=== PATIENT | male | born 1935 | race African-American/Black ===

== ENCOUNTER 2017-06-06 11:13 | Inpatient (IN) ==
[2017-06-06] MEDS ORDERED: ONDANSETRON 4 MG/2 ML VIAL IV STA (11:39)
[2017-06-06] MEDS ORDERED: ONDANSETRON 4 MG/2 ML VIAL ONE (12:04)
--- NOTE | 2017-06-06 12:11 | CT Report ---
CT abdomen pelvis Indication: Abdominal pain Comparison: None available Technique: Axial CT imaging of the abdomen and pelvis is performed without contrast. Findings: Cardiac and lung bases are within normal limits CT abdomen: The liver spleen pancreas and adrenal glands are normal in size and density. No evidence of focal lesion is demonstrated in these solid organs. Gallbladder has been removed. Kidneys are normal in size with multiple cystic appearing area is poorly defined without contrast.. No evidence of hydronephrosis or nephrolithiasis is seen. Enlarged hilar lymph nodes are present around the aorta, poorly defined without contrast. Multiple sclerotic lesions are present in the lumbar spine. The bowel caliber is normal and no wall thickening or adjacent inflammatory change is seen. No evidence of free fluid or free air is present. CT pelvis: Multiple enlarged lymph nodes are present in the iliac chains. Multiple sclerotic lesions are present in the sacrum and pelvic bones. 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 The bowel and bladder appear within normal limits. The pelvic organs show no evidence of abnormality Impression: Multiple enlarged lymph nodes in the aorta and iliac chains, poorly defined without contrast. Multiple osseous sclerotic metastatic lesions. This CT exam was performed using one or more the following dose reduction techniques: Automated exposure control, adjustment of the MA and/or KV according to patient size, or use of iterative reconstruction technique. PROCEDURE INTERPRETED AT [facility] DEPARTMENT OF RADIOLOGY Final Report Signed by: Dr. Phong Dickson
[2017-06-06 12:20] LABS: Basophils # 0.1 10*3/uL (0.0-0.2); Basophils % 1.8 % (0.0-0.8); Eosinophils # 0.1 10*3/uL (0.0-0.87); Hematocrit 35.1 VOL% (42.0-52.0); Hemoglobin 11.1 GM/DL (14.0-18.0); Immature Granulocytes % 0.3 %; Immature Granulocytes Absolute 0.01 #; Lymphocytes % 25.4 % (21.2-54.2); Mean Corpuscular HGB Conc 31.6 GM/DL (32-36); Mean Corpuscular Hemoglobin 26 PG (27-34); Mean Corpuscular Volume 82.4 FL (87-102); Mean Platelet Volume 8.8 FL (9.6-12.0); Monocytes # 0.3 10*3/uL (0.11-0.8); Monocytes % 7.8 % (1.7-12.7); Neutrophils # 2.5 10*3/uL (1.4-7.4); Neutrophils % 62.7 % (38.7-73.9); Platelet Count 356 T/CUMM (130-400); Red Blood Count 4.26 MC/CUMM (3.8-5.5); Red Cell Distribution Width 15.2 % (9.3-17.3)
[2017-06-06 12:49] LABS: Alanine Aminotransferase 11 U/L (16-61); Albumin 3.1 G/DL (3.4-5.0); Alkaline Phosphatase 396 U/L (45-117); Aspartate Amino Transferase 28 U/L (0-37); Bilirubin,Total < 0.39 MG/DL (0.2-1.0); Blood Urea Nitrogen 14 MG/DL (7-18); Calcium 9.8 MG/DL (8.5-10.1); Glucose 117 MG/DL (74-106); Potassium 3.7 MMOL/L (3.5-5.1); Sodium 143 MMOL/L (136-145); Total Protein 7.4 G/DL (6.4-8.3)
--- NOTE | 2017-06-06 12:52 | XRay Report ---
XR chest 1V portable Indication: Abdominal pain Comparison: 22 September 2016 Findings: The heart and mediastinum are normal in size and configuration. The pulmonary vascularity is normal in caliber. No lung infiltrates, effusions, pneumothorax or other abnormality is demonstrated. Impression: Normal chest x-ray PROCEDURE INTERPRETED AT [facility] DEPARTMENT OF RADIOLOGY Final Report Signed by: Dr. Phong Dickson
[2017-06-06 13:33] LABS: Apearance,Urine CLOUDY (Clear); Bacteria,Urine Few /HPF (Few); Bilirubin,Urine Negative (Negative); Blood, Urine Small mg/dL (Negative); Glucose,Urine (UA) Negative (Negative); Ketones,Urine Negative (Negative); Mucus,Urine Few /LPF (Occasional); Nitrite,Urine Negative (Negative); Protein,Urine 30 MG/DL; RBC,Urine 15 /HPF (0-4); Squamous Epithelial Cell,Urine Occasional /HPF (0-10); Urine Color Yellow (Yellow); Urine Specific Gravity 1.014 (1.001-1.035); Urine Urobilinogen < 2.0 EU/DL (0.2-1.0); WBC,Urine 509 /HPF (0-6)
--- NOTE | 2017-06-06 13:52 | Emergency Department Note ---
Mark Leung Manpreet, am scribing for, and in the presence of, Robbie Taylor MD 11:47. Claudia Leung Phillip K, MD, personally performed the services described in this documentation, ascribed by Caden Flores in my presence, and it is both accurate and complete [id number] . Arrival - Arrival Chief Complaint: Abdominal / Flank Pain Stated Complaint: right side pain ED Nursing Triage Note: Pt c/o right sided abd/flank pain x 3 days. denies N/V /D Mode of Arrival: Ambulatory Limitations: No Limitations Source: Patient Time Seen by Provider: 06/06/17 11:37 - History of Present Illness HPI Narrative: Pt is a 81 y/o male, with PMHx of HTN, CVA, seizures, NIDDM, HLD, and GERD, who presents to the ED with CC of right-sided Abd pain that began 3 days ago. Pt denies any N/V, fever, or chills, but c/o decreased appetite. Pt is unable to communicate effectively due to 2 previous CVA's. No other pains/complaints reported to ED. Onset (ago): day(s) (2 days3) Consistency: constant Severity: moderate Severity scale (1-10): 3 Quality: cramping Allergies/Adverse Reactions: Allergies Allergy/AdvReac Type Severity Reaction Status Date / Time No Known Allergies Allergy Verified 05/30/17 16:43 Home Medications: Home Medications Medication Instructions Recorded Confirmed Type Lacosamide [Vimpat] 100 mg PO BID 02/06/16 05/30/17 History Levothyroxine Tab [Synthroid Tab] 125 mcg PO DAILY@0700 02/06/16 05/30/17 History Rivaroxaban [Xarelto] 10 mg PO QAM 02/06/16 05/30/17 History traZODone [Desyrel] 50 mg PO BEDTIME 02/06/16 05/30/17 History Phenytoin Sodium Extended 200 mg PO BID 09/22/16 05/30/17 History [Dilantin] dilTIAZem HCl [Cartia XT] 120 mg PO QAM 09/22/16 05/30/17 History Ibuprofen [Ibuprofen] 800 mg PO TID 05/30/17 05/30/17 History Pravastatin Sodium 10 mg PO QAM 05/30/17 05/30/17 History Review of System - Review of System 12 point system: reviewed and no additional remarkable complaints except as stated - Review of System Constitutional: Present: other (Decreased appetite). Absent: chills, diaphoresis, fever, weakness Respiratory: Absent: cough, respiratory distress Cardiovascular: Absent: chest pain, dyspnea on exertion Gastrointestinal: Present: abdominal pain. Absent: nausea, vomiting Musculoskeletal: Absent: arm pain, back pain, leg pain, neck pain Neurological: Absent: headache, weakness Medical,Surgical,& Family Hx - Medical History Cardio: History of: Hypertension Neurology: History of: Cerebrovascular Accident (x2), Seizures Endocrine: History of: Diabetes Mellitus (NIDDM) (diet controlled), Dyslipidemia , Thyroid Disorder Gastrointestinal: History of: GERD Comment Only: GI Problems (constipation) Musculoskeletal: History of: Musculoskeletal Problems (limited ROM from strokes) Other: History of: Cancer (breast cancer) - Surgical History Thoracic Surgeries: Patient denies;: Organ Transplant Neurologic Surgeries: Patient denies: Neurologic Surgery HEENT Surgeries: Surgical HX of: Thyroid Surgery (goiter removed) Abdominal Surgeries: Patient denies: Abdominal Surgery Reproductive Surgeries: Surgical HX of;: Breast Surgery (angela mastectomy) - Family History Family History: Reports;: Family Hypertension - Social History Smoking Status: Never smoker Exam Vital Signs: Vital Signs Temperature 97.3 F L 06/06/17 11:32 Pulse Rate 89 06/06/17 11:32 Respiratory Rate 16 06/06/17 11:32 Blood Pressure 116/66 06/06/17 11:32 O2 Sat by Pulse Oximetry 98 06/06/17 11:19 - General General appearance: alert, in no apparent distress - Head Head exam: Present: atraumatic, normocephalic, normal inspection - Eye Eye exam: Present: normal appearance, PERRL, EOMI - ENT ENT exam: Present: normal exam, normal oropharynx, mucous membranes moist, TM's normal bilaterally - Neck Neck exam: Present: normal inspection, full ROM, trachea midline. Absent: tenderness, thyromegaly - Chest Chest inspection: Absent: normal inspection (Bilat masenectomy), tenderness - Respiratory Respiratory exam: Present: normal lung sounds bilaterally. Absent: accessory muscle use, respiratory distress - Cardiovascular Cardiovascular exam: Present: regular rate, normal rhythm, normal heart sounds. Absent: murmur, rubs, gallop - Abdominal Exam Abdominal exam: Present: tenderness (RUQ tenderness to direct palpation), normal bowel sounds. Absent: distention - Extremities Exam Extremities exam: Present: normal inspection, full ROM. Absent: tenderness, pedal edema - Back Exam Back exam: Present: normal inspection, full ROM. Absent: tenderness - Neurological Exam Neurological exam: Present: alert, oriented X3, CN II-XII intact, reflexes normal - Psychiatric Psychiatric exam: Present: normal affect, normal mood - Skin Skin exam: Present: warm, dry, intact, normal color. Absent: pallor Course Course Narrative: Patient denies any previous history of cancer. Results - Labs CBC & BMP: 06/06/17 12:13 06/06/17 12:13 Lab Results: I have reviewed the patients labs Labs: Laboratory Tests 06/06/17 06/06/17 12:13 12:13 WBC 4.0 RBC 4.26 Hgb 11.1 L Hct 35.1 L MCV 82.4 L MCH 26 L MCHC 31.6 L Plt Count 356 MPV 8.8 L Baso % (Auto) 1.8 H Lymph # (Auto) 1.0 L Sodium 143 Potassium 3.7 Chloride 107 Carbon Dioxide 29 Anion Gap 10.7 BUN 14 Creatinine 0.90 Glucose 117 H ALT 11 L Alkaline Phosphatase 396 H Albumin 3.1 L Globulin 4.3 H Albumin/Globulin Ratio 0.7 L Laboratory Tests 06/06/17 13:20 Urine pH 6.0 Ur Specific [place] 1.014 Urine Protein 30 Urine Urobilinogen < 2.0 H Urine Leukocytes Large H Urine RBC 15 Urine WBC 509 - Diagnostic Findings Procedure: Chest x-ray: report reviewed by me (Normal chest x-ray.), CT Abdomen and Pelvis: report reviewed by me (Multiple enlarged lymph nodes are present in the iliac chains. Multiple sclerotic lesions are present in the aorta and iliac chains, porly defined without contrast. Multiple osseous sclerotic metastatic lesions.) Disposition Clinical Impression: Metastatic bone cancer, Abdominal lymphadenopathy, Abdominal pain, Nausea and vomiting Case discussed with: patient Disposition: Still a Patient Condition: Guarded Additional Instructions: Admit to the hospitalist.
--- NOTE | 2017-06-06 14:30 | Hospitalist History & Physical ---
Assessment and Plan - Time spent with patient Time spent with patient: Greater than 30 minutes (1) Abdominal pain Status: Acute Assessment and plan: CT abd/pelvis: impression: Multiple enlarged lymph nodes in the aorta and iliac chains, poorly defined without contrast. Multiple osseous sclerotic metastatic lesions. Will admit to floor. Will give fluids. Will start antibiotics for UTI. Will culture urine. Will discuss with Dr Ann for further recommendations. Current Visit: Yes History of Present Illness Chief complaint: abdominal pain/flank pain x3 days History of present illness: Mr. Carranza is a 81 year old black male with PMHx of HTN, Seizures, CVA, GERD, Diabetes(diet controlled) presented to [facility] ED for further evaluation of abdominal pain (right sided, upper tenderness) and flank pain x 3 days. Denies nausea, vomiting, diarrhea, fever, chills or cough. Reports decrease in appetite. Patient has difficulty with communicating verbally related to previous CVAs x2. A daughter came into the room and verbalized that the patient recently seen Dr Segal and was given a laxative for constipation, the patient verbalized that he did not have any or very little success from the laxative. Surgical history: bilateral mastectomy (breast cancer?), thyroid ( goiter) removed. He has a scar to his abdomen/umbilicus but patient does not remember surgical reason. Primary care physician: Dr Segal. After discussing with Dr Taylor ED physician and Dr Ann with Hospitalist Services, it was agreed to admit patient for further evaluation. Will review home medications and reconciliation to follow. Home Medications Medication Instructions Recorded Confirmed Type Lacosamide [Vimpat] 100 mg PO BID 02/06/16 05/30/17 History Levothyroxine Tab [Synthroid Tab] 125 mcg PO DAILY@0700 02/06/16 05/30/17 History Rivaroxaban [Xarelto] 10 mg PO QAM 02/06/16 05/30/17 History traZODone [Desyrel] 50 mg PO BEDTIME 02/06/16 05/30/17 History Phenytoin Sodium Extended 200 mg PO BID 09/22/16 05/30/17 History [Dilantin] dilTIAZem HCl [Cartia XT] 120 mg PO QAM 09/22/16 05/30/17 History Ibuprofen [Ibuprofen] 800 mg PO TID 05/30/17 05/30/17 History Pravastatin Sodium 10 mg PO QAM 05/30/17 05/30/17 History Allergies Allergy/AdvReac Type Severity Reaction Status Date / Time No Known Allergies Allergy Verified 05/30/17 16:43 Medical,Surgical,& Family Hx - Medical History Cardio: History of: Hypertension Neurology: History of: Cerebrovascular Accident (x2), Seizures Endocrine: History of: Diabetes Mellitus (NIDDM) (diet controlled), Dyslipidemia , Thyroid Disorder (goiter removed) Gastrointestinal: History of: GERD Comment Only: GI Problems (constipation) Musculoskeletal: History of: Musculoskeletal Problems (limited ROM from strokes) Other: History of: Cancer (breast cancer) - Surgical History Thoracic Surgeries: Patient denies;: Organ Transplant Neurologic Surgeries: Patient denies: Neurologic Surgery HEENT Surgeries: Surgical HX of: Thyroid Surgery (goiter removed) Abdominal Surgeries: Patient denies: Abdominal Surgery Reproductive Surgeries: Surgical HX of;: Breast Surgery (angela mastectomy) - Family History Family History: Reports;: Family Hypertension - Social History Smoking Status: Never smoker Frequency of Alcohol Use: None Type of Drug Use: None Lives With:: Alone Functional capacity: uses cane/walker (uses a cane) Review of systems: ROS completed and pertinent positives and negatives in HPI. Exam - Constitutional Vitals: Period Temp Pulse Resp BP Sys/Aguirre Pulse Ox Last 24 Hr 97.3 F-97.3 F 89-89 16-16 116-116/66-66 98 General appearance: normal weight, no acute distress - Head Head exam: Present: normal inspection - Eye Eye exam: Present: EOMI Pupils: Present: ALAINA - Neck Neck exam: Present: normal inspection - Respiratory Respiratory exam: Present: clear to auscultation bilaterally - Cardiovascular Cardiovascular exam: Present: regular rate and rhythm - GI/Abdominal GI/Abdominal exam: Present: normal bowel sounds, tenderness (right upper tenderness), soft. Absent: guarding, rebound - Extremities Exam Extremities exam: Present: normal inspection, full ROM. Absent: edema - Neurological Exam Neurological exam: Present: alert, oriented X3, CN II-XII intact - Psychiatric Psychiatric exam: Present: normal affect, normal mood - Skin Skin exam: Present: normal color, warm, dry Results - Labs CBC & BMP: 06/06/17 12:13 06/06/17 12:13 Lab Results: I have reviewed the past 24 hour labs Labs: Alkaline Phosphatase 396 AST 28 ALT 11 Lipase 148.0 Urine results: leukocytes: large WBC 509 bacteria few - Diagnostic Findings Procedure: Chest x-ray: report reviewed by me (normal chest xray), CT Abdomen and Pelvis: report reviewed by me (Multiple enlarged lymph nodes in the aorta and iliac chains, poorly defined without contrast, multiple osseous sclerotic metastatic lesions)
[2017-06-06] MEDS ORDERED: ONDANSETRON 4 MG/2 ML VIAL IV PRN (14:50)
[2017-06-06] MEDS ORDERED: DOCUSATE SODIUM 100 MG CAPSULE PO PRN (14:50)
[2017-06-06] MEDS ORDERED: ACETAMINOPHEN 325 MG TABLET PO PRN (14:50)
[2017-06-06] MEDS: SODIUM CHLORIDE 0.9% 1,000 ML IV SCH (16:00)
[2017-06-06] MEDS: cefTRIAXone 1,000 MG in SODIUM CHLORIDE 0.9% 100 ML IV SCH (16:40)
[2017-06-06] MEDS: LEVOFLOXACIN INJ 750 MG in PREMIX 1 EACH IV SCH (18:10)
[2017-06-06] MEDS: traZODone 50 MG TABLET PO SCH (21:19)
[2017-06-06] MEDS: PHENYTOIN ER 100 MG CAPSULE PO SCH (21:19)
[2017-06-06] MEDS: LACOSAMIDE 50 MG TABLET PO SCH (21:19)
[2017-06-06] MEDS: IBUPROFEN 800 MG TABLET PO SCH (21:20)
[2017-06-07 05:21] LABS: Basophils # 0.1 10*3/uL (0.0-0.2); Basophils % 1.9 % (0.0-0.8); Eosinophils # 0.2 10*3/uL (0.0-0.87); Eosinophils % 4.6 % (0.00-10.9); Hematocrit 31.1 VOL% (42.0-52.0); Hemoglobin 9.8 GM/DL (14.0-18.0); Immature Granulocytes % 0.5 %; Immature Granulocytes Absolute 0.02 #; Lymphocytes # 1.1 10*3/uL (1.4-4.0); Lymphocytes % 30.5 % (21.2-54.2); Mean Corpuscular HGB Conc 31.5 GM/DL (32-36); Mean Corpuscular Hemoglobin 26 PG (27-34); Mean Corpuscular Volume 83.6 FL (87-102); Monocytes # 0.4 10*3/uL (0.11-0.8); Monocytes % 11.4 % (1.7-12.7); Neutrophils # 1.9 10*3/uL (1.4-7.4); Neutrophils % 51.1 % (38.7-73.9); Platelet Count 298 T/CUMM (130-400); Red Blood Count 3.72 MC/CUMM (3.8-5.5); White Blood Count 3.7 T/CUMM (4-12)
[2017-06-07 05:44] LABS: Calcium 9.1 MG/DL (8.5-10.1); Magnesium 2.2 MG/DL (1.8-2.4); Potassium 4.2 MMOL/L (3.5-5.1)
[2017-06-07] MEDS: LEVOTHYROXINE 125 MCG TABLET PO SCH (06:14)
[2017-06-07 07:45] LABS: Albumin (SPE) 3.9 G/DL (3.2-5.3); Albumin (SPE) Rel % 55.2 %; Alpha 1 (SPE) 0.3 G/DL (0.1-0.4); Alpha 2 (SPE) Rel % 15.4 %; Beta (SPE) 0.8 G/DL (0.5-1.1); Beta (SPE) Rel % 11.7 %
[2017-06-07 07:46] LABS: Gamma (SPE) Rel % 13.7 %
[2017-06-07] MEDS ORDERED: RIVAROXABAN 10 MG TABLET PO SCH (09:00)
[2017-06-07] MEDS: PHENYTOIN ER 100 MG CAPSULE PO SCH ×2 (09:49→20:38)
[2017-06-07] MEDS: PRAVASTATIN 20 MG TABLET PO SCH (09:50)
[2017-06-07] MEDS: LACOSAMIDE 50 MG TABLET PO SCH ×2 (09:51→20:39)
[2017-06-07] MEDS: POLYETHYLENE GLYCOL POWDER 17 GM PACK PO SCH (09:51)
[2017-06-07] MEDS: IBUPROFEN 800 MG TABLET PO SCH ×3 (09:51→20:37)
[2017-06-07] MEDS: PANTOPRAZOLE 40 MG TABLET PO SCH (09:51)
[2017-06-07] MEDS: DILTIAZEM CD 120 MG CAPSULE PO SCH (09:52)
[2017-06-07 09:55] LABS: Prostate Specific Antigen Diag 538.6 NG/ML (0-4)
[2017-06-07] MEDS: SODIUM CHLORIDE 0.9% 1,000 ML IV SCH (09:58)
--- NOTE | 2017-06-07 10:17 | Urology Consultation ---
Assessment and Plan - Time spent with patient Time spent with patient: Greater than 30 minutes (1) Prostate cancer metastatic to bone Status: Acute Assessment and plan: We will evaluate this but this is looking like prostate cancer. We will hold the Xarelto in preparation for a transrectal ultrasound and biopsy probably on 06/13/17. We will check a bladder scan and we will check a bone scan. Current Visit: Yes History of Present Illness - Data of Consult Patient: new to practice Consult date: 06/07/17 Requesting Physician: Anoop Ann - Consult Narrative Reason for consult: Voiding dysfunction, elevated PSA, abnormal imaging History of present illness: Mr. Carranza is a 81 year old male who I have seen in the past. Last saw him in 2010. He had a TUR by laser. At that time his PSA was 5. He never return to the office. He had 3 appointments that he no showed. We made every effort to get him back but it would not return. He is now admitted the hospital with findings that are consistent with probable metastatic prostate cancer. He is having incontinence, elevated PSA, abnormal imaging and abnormal blood work. I am going to order a bladder scan, bone scan and perform a transrectal ultrasound on Tuesday. He is on Xarelto so we will have to hold that for 3 days and unfortunately the first day we can do this will be next Tuesday. In the meantime we will work this up. His PSA is 538. CC: Anoop Ann MD - Home Medications and Allergies Home Medications: Home Medications Medication Instructions Recorded Confirmed Type Lacosamide [Vimpat] 100 mg PO BID 02/06/16 06/06/17 History Levothyroxine Tab [Synthroid Tab] 125 mcg PO DAILY@0700 02/06/16 06/06/17 History Rivaroxaban [Xarelto] 10 mg PO QAM 02/06/16 06/06/17 History traZODone [Desyrel] 50 mg PO BEDTIME 02/06/16 06/06/17 History Phenytoin Sodium Extended 200 mg PO BID 09/22/16 06/06/17 History [Dilantin] dilTIAZem HCl [Cartia XT] 120 mg PO QAM 09/22/16 06/06/17 History Ibuprofen [Ibuprofen] 800 mg PO TID 05/30/17 06/06/17 History Pravastatin Sodium 10 mg PO QAM 05/30/17 06/06/17 History Ciprofloxacin Tab [Cipro Tab] 500 mg PO BID 06/06/17 06/06/17 History Polyethylene Glycol Powder 1 packet PO DAILY 06/06/17 06/06/17 History [Miralax] Allergies/Adverse Reactions: Allergies Allergy/AdvReac Type Severity Reaction Status Date / Time No Known Allergies Allergy Verified 05/30/17 16:43 12 point system: reviewed and no additional remarkable complaints except as stated - Genitourinary Genitourinary: Present: urinary incontinence - Musculoskeletal Musculoskeletal: Present: arthralgias, back pain Exam - Constitutional Vitals: Period Temp Pulse Resp BP Sys/Aguirre Pulse Ox Last 24 Hr 96.8 F-98 F 62-89 16-20 110-145/63-78 94-99 - GI/Abdominal GI/Abdominal exam: Present: normal bowel sounds. Absent: ascites, distended, firm, guarding, hernia, mass - Genitourinary Genitourinary: scrotum without lesions, cysts, edema or rash, penis with no lesions or discharge, diffusely enlarged prostate without tenderness (Prostate has multiple nodules.) Results - Labs CBC & BMP: 06/07/17 04:39 06/07/17 04:39 Lab Results: I have reviewed the past 24 hour labs (PSAs 538, alkaline phosphatase is abnormal)
--- NOTE | 2017-06-07 12:16 | Hospitalist Progress Note ---
Assessment and Plan (1) Prostate cancer metastatic to bone Status: Acute Assessment and plan: The patient has evidence of prostate cancer on account of the PSA of 538. Dr. Maldonado recommends biopsy to confirm the diagnosis. The patient's pain is improving. I am going to discontinue anticoagulation today. 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 The patient does not complain of pelvic discomfort today. The patient was seen by Dr. Maldonado this morning and I coordinated care with him. He has known the patient previously with PSA of 5 but the patient did not return for further follow-up. Dr. Maldonado anticipates prostate biopsy after anticoagulation has been discontinued. Exam - Constitutional Vitals: Period Temp Pulse Resp BP Sys/Aguirre Pulse Ox Last 24 Hr 96.8 F-98 F 62-75 16-20 110-145/63-78 94-99 Exam: Constitutional System: Minimal distress. No tremulousness. Head: Normocephalic, atraumatic. Ears, Nose and Throat System: No evidence of Otitis or Mastoiditis. No epistaxis or discharge Eyes System: Pupils equal, round, and reactive. Extraocular muscles intact. Neck: Supple, without adenopathy, No jugular venous distention. No thyromegaly , neck mass, or prior surgery apparent. Respiratory System: Chest clear to auscultation. Cardiovascular System: Heart with regular rate and rhythm. No murmur. GI System: Abdomen soft, nontender. Normo active bowel sounds present. Musculoskeletal System: limbs with no pedal edema. Full distal pulses. Neurological System: No discernable sensory deficit. Incomplete expressive aphasia due to previous stroke Psychiatric System: Conversation is rational Results - Labs CBC & BMP: 06/07/17 04:39 06/07/17 04:39 Lab Results: I have reviewed the past 24 hour labs Labs: PSA 538
--- NOTE | 2017-06-07 15:55 | Nuclear Medicine Report ---
Exam: Whole-body bone scan Date: 06/07/2017 Comparison: CT abdomen and pelvis 06/06/2017 Reason: Elevated PSA with abnormal CT Technique: 30 mCi of technetium 99m MDP was administered IV. Delayed anterior and posterior whole body images were then acquired. Findings: Multiple areas of increased isotopic activity noted including the shoulders, left clavicle, lower cervical spine, thoracic spine, lumbar spine, pelvis, multiple ribs, and sternum. Impression: Evidence of diffuse osseous metastatic disease. PROCEDURE INTERPRETED AT [facility] DEPARTMENT OF RADIOLOGY Final Report Signed by: Dr. Gi Torres
[2017-06-07] MEDS: cefTRIAXone 1,000 MG in SODIUM CHLORIDE 0.9% 100 ML IV SCH (19:05)
[2017-06-07] MEDS: traZODone 50 MG TABLET PO SCH (20:37)
[2017-06-07] MEDS: LEVOFLOXACIN INJ 750 MG in PREMIX 1 EACH IV SCH (20:39)
[2017-06-08 04:55] LABS: Basophils # 0.1 10*3/uL (0.0-0.2); Basophils % 1.5 % (0.0-0.8); Eosinophils # 0.2 10*3/uL (0.0-0.87); Eosinophils % 5.6 % (0.00-10.9); Hematocrit 30.6 VOL% (42.0-52.0); Hemoglobin 9.6 GM/DL (14.0-18.0); Immature Granulocytes % 0.2 %; Immature Granulocytes Absolute 0.01 #; Lymphocytes # 1.1 10*3/uL (1.4-4.0); Lymphocytes % 26.5 % (21.2-54.2); Mean Corpuscular HGB Conc 31.4 GM/DL (32-36); Mean Corpuscular Hemoglobin 26 PG (27-34); Mean Corpuscular Volume 82.7 FL (87-102); Mean Platelet Volume 9.2 FL (9.6-12.0); Monocytes # 0.5 10*3/uL (0.11-0.8); Monocytes % 11.4 % (1.7-12.7); Neutrophils # 2.3 10*3/uL (1.4-7.4); Neutrophils % 54.8 % (38.7-73.9); Platelet Count 310 T/CUMM (130-400); White Blood Count 4.1 T/CUMM (4-12)
[2017-06-08 05:24] LABS: Calcium 8.9 MG/DL (8.5-10.1); Magnesium 2.3 MG/DL (1.8-2.4); Potassium 4.3 MMOL/L (3.5-5.1)
[2017-06-08] MEDS: LEVOTHYROXINE 125 MCG TABLET PO SCH (06:05)
[2017-06-08] MEDS: PRAVASTATIN 20 MG TABLET PO SCH (08:59)
[2017-06-08] MEDS: DILTIAZEM CD 120 MG CAPSULE PO SCH (09:00)
[2017-06-08] MEDS: PANTOPRAZOLE 40 MG TABLET PO SCH (09:00)
[2017-06-08] MEDS: IBUPROFEN 800 MG TABLET PO SCH ×3 (09:00→20:29)
[2017-06-08] MEDS: LACOSAMIDE 50 MG TABLET PO SCH ×2 (09:00→20:28)
[2017-06-08] MEDS: PHENYTOIN ER 100 MG CAPSULE PO SCH ×2 (09:00→20:28)
[2017-06-08] MEDS: POLYETHYLENE GLYCOL POWDER 17 GM PACK PO SCH (09:01)
--- NOTE | 2017-06-08 15:06 | Hospitalist Progress Note ---
Assessment and Plan (1) Prostate cancer metastatic to bone Status: Acute Assessment and plan: The patient has evidence of prostate cancer on account of the PSA of 538. Dr. Maldonado recommends biopsy to confirm the diagnosis. Dr. Maldonado anticipates the biopsy will be on Tuesday. The patient's pain is improving. Anticoagulation was discontinued yesterday. The patient's urine culture has returned with E. coli sensitive to Rocephin and we continue Rocephin for now. 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 Carranza is resting quietly in his room. The patient seems more alert today. He has 2 female family members at the bedside. The patient does not complain of abdominal pain or back pain today. Exam - Constitutional Vitals: Period Temp Pulse Resp BP Sys/Aguirre Pulse Ox Last 24 Hr 96.1 F-98.6 F 64-78 16-20 127-178/56-76 92-100 Exam: Constitutional System: No distress. No tremulousness. Head: Normocephalic, atraumatic. Ears, Nose and Throat System: No evidence of Otitis or Mastoiditis. No epistaxis or discharge Eyes System: Pupils equal, round, and reactive. Extraocular muscles intact. Neck: Supple, without adenopathy, No jugular venous distention. No thyromegaly , neck mass, or prior surgery apparent. Respiratory System: Chest clear to auscultation. Cardiovascular System: Heart with regular rate and rhythm. No murmur. GI System: Abdomen soft, nontender. Normo active bowel sounds present. Musculoskeletal System: limbs with no pedal edema. Full distal pulses. Neurological System: No discernable sensory deficit. Incomplete expressive aphasia due to previous stroke Psychiatric System: Conversation is rational Results - Labs CBC & BMP: 06/08/17 04:15 06/08/17 04:15 Lab Results: I have reviewed the past 24 hour labs Labs: Urine culture reveals E. coli sensitive to Rocephin.
--- NOTE | 2017-06-08 16:38 | Urology Progress Note ---
Assessment and Plan (1) Prostate cancer metastatic to bone Status: Acute Assessment and plan: We will evaluate this but this is looking like prostate cancer. We will hold the Xarelto in preparation for a transrectal ultrasound and biopsy probably on 06/13/17. We will check a bladder scan and we will check a bone scan. Current Visit: Yes Urology - PN: Subj Interval history: Patient is resting comfortably. He is voiding better. Bladder scan showed 100 cc in his bladder. This tolerable. His bone scan reveals multiple lesions throughout his axial skeleton and pelvic bones. His alkaline phosphatase is elevated. On exam and clinical picture is clearly an advanced prostate cancer. We are waiting to get a tissue diagnosis. He is off of Xarelto we are planning a biopsy come Tuesday. I had a discussion with the family. I related to the family that 6 years ago he never came back to see me after we have treated him with a laser. And the daughter that is present now said he was with another daughter. Either way, he was lost to follow-up. I did discuss the early treatments for carcinoma the prostate in an advanced case. We will begin with hormonal therapy and initially had Casodex. We will see what the bone scan and his blood work shows. Exam - Constitutional Vitals: Period Temp Pulse Resp BP Sys/Aguirre Pulse Ox Last 24 Hr 96.1 F-98.6 F 62-78 16-20 129-178/64-76 92-100 Results - Labs CBC & BMP: 06/08/17 04:15 06/08/17 04:15
[2017-06-08] MEDS: cefTRIAXone 1,000 MG in SODIUM CHLORIDE 0.9% 100 ML IV SCH (16:56)
[2017-06-08] MEDS: traZODone 50 MG TABLET PO SCH (20:29)
[2017-06-09] MEDS: LEVOTHYROXINE 125 MCG TABLET PO SCH (06:11)
--- NOTE | 2017-06-09 09:07 | Urology Progress Note ---
Assessment and Plan (1) Prostate cancer metastatic to bone Status: Acute Assessment and plan: We will evaluate this but this is looking like prostate cancer. We will hold the Xarelto in preparation for a transrectal ultrasound and biopsy probably on 06/13/17. We will check a bladder scan and we will check a bone scan. Current Visit: Yes Urology - PN: Subj Interval history: Patient is stable. He says he is voiding well. He is on the Rocephin for his UTI. We plan on biopsy on Tuesday. Waiting for the Xarelto to clear his system. He is having some trouble bowel movements per so we will give him a laxative. He is on MiraLAX. I will add Colace. I will also begin Casodex 50 mg daily in preparation for treatment. Exam - Constitutional Vitals: Period Temp Pulse Resp BP Sys/Aguirre Pulse Ox Last 24 Hr 96.1 F-97.8 F 62-76 18-20 129-149/67-78 94-99 Results - Labs CBC & BMP: 06/08/17 04:15 06/08/17 04:15
[2017-06-09] MEDS: PRAVASTATIN 20 MG TABLET PO SCH (09:08)
[2017-06-09] MEDS: PHENYTOIN ER 100 MG CAPSULE PO SCH ×2 (09:08→20:32)
[2017-06-09] MEDS: LACOSAMIDE 50 MG TABLET PO SCH ×2 (09:08→20:32)
[2017-06-09] MEDS: IBUPROFEN 800 MG TABLET PO SCH ×3 (09:08→20:32)
[2017-06-09] MEDS: PANTOPRAZOLE 40 MG TABLET PO SCH (09:09)
[2017-06-09] MEDS: POLYETHYLENE GLYCOL POWDER 17 GM PACK PO SCH (09:09)
[2017-06-09] MEDS: DILTIAZEM CD 120 MG CAPSULE PO SCH (09:09)
[2017-06-09] MEDS: BICALUTAMIDE 50 MG TABLET PO SCH (10:31)
[2017-06-09] MEDS: DOCUSATE SODIUM 100 MG CAPSULE PO SCH ×2 (10:32→20:32)
--- NOTE | 2017-06-09 11:16 | Hospitalist Progress Note ---
Assessment and Plan (1) Prostate cancer metastatic to bone Status: Acute Assessment and plan: The patient has evidence of prostate cancer on account of the PSA of 538. Dr. Maldonado recommends biopsy to confirm the diagnosis. Dr. Maldonado anticipates the biopsy will be on Tuesday. The patient's pain is improving. Anticoagulation was discontinued. The patient's urine culture has returned with E. coli sensitive to Rocephin and we continue Rocephin for now. 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 Carranza is resting comfortably in bed today. He is not complaining of back pain or abdominal discomfort. He still feels constipated. I coordinated care with Dr. Maldonado. He plans prostate biopsy for Tuesday. Exam - Constitutional Vitals: Period Temp Pulse Resp BP Sys/Aguirre Pulse Ox Last 24 Hr 96.1 F-97.8 F 62-76 18-20 129-149/67-78 94-99 Exam: Constitutional System: No distress. No tremulousness. Head: Normocephalic, atraumatic. Ears, Nose and Throat System: No evidence of Otitis or Mastoiditis. No epistaxis or discharge Eyes System: Pupils equal, round, and reactive. Extraocular muscles intact. Neck: Supple, without adenopathy, No jugular venous distention. No thyromegaly , neck mass, or prior surgery apparent. Respiratory System: Chest clear to auscultation. Cardiovascular System: Heart with regular rate and rhythm. No murmur. GI System: Abdomen soft, nontender. Normo active bowel sounds present. Musculoskeletal System: limbs with no pedal edema. Full distal pulses. Neurological System: No discernable sensory deficit. Incomplete expressive aphasia due to previous stroke Psychiatric System: Conversation is rational Results - Labs CBC & BMP: 06/08/17 04:15 06/08/17 04:15 Lab Results: I have reviewed the past 24 hour labs Labs: Urine culture reveals E. coli sensitive to Rocephin.
[2017-06-09] MEDS: cefTRIAXone 1,000 MG in SODIUM CHLORIDE 0.9% 100 ML IV SCH (15:34)
[2017-06-09] MEDS: traZODone 50 MG TABLET PO SCH (20:32)
[2017-06-10] MEDS: LEVOTHYROXINE 125 MCG TABLET PO SCH (06:13)
[2017-06-10] MEDS: LACOSAMIDE 50 MG TABLET PO SCH ×2 (09:08→21:00)
[2017-06-10] MEDS: IBUPROFEN 800 MG TABLET PO SCH (09:09)
[2017-06-10] MEDS: BICALUTAMIDE 50 MG TABLET PO SCH (09:10)
[2017-06-10] MEDS: PANTOPRAZOLE 40 MG TABLET PO SCH (09:11)
[2017-06-10] MEDS: DILTIAZEM CD 120 MG CAPSULE PO SCH (09:12)
[2017-06-10] MEDS: PRAVASTATIN 20 MG TABLET PO SCH (09:13)
[2017-06-10] MEDS: PHENYTOIN ER 100 MG CAPSULE PO SCH ×2 (09:13→20:59)
[2017-06-10] MEDS: DOCUSATE SODIUM 100 MG CAPSULE PO SCH ×2 (09:14→20:59)
[2017-06-10] MEDS: POLYETHYLENE GLYCOL POWDER 17 GM PACK PO SCH (09:15)
--- NOTE | 2017-06-10 09:32 | Hospitalist Progress Note ---
Assessment and Plan (1) Prostate cancer metastatic to bone Status: Acute Assessment and plan: The patient has evidence of prostate cancer on account of the PSA of 538. Dr. Maldonado recommends biopsy to confirm the diagnosis. Dr. Maldonado anticipates the biopsy will be on Tuesday. The patient's pain is improving. Anticoagulation was discontinued. The patient's urine culture has returned with E. coli sensitive to Rocephin and we continue Rocephin for now. Current Visit: Yes (2) Cerebral arteriosclerosis with history of previous stroke Status: Chronic Current Visit: No Hospitalist: Subjective Interval history: The patient is sitting up on the side of the and enjoying good breakfast this morning. There were no new events overnight. Would continue treatment of urinary tract infection and await prostate biopsy on Tuesday. The patient does not have any bleeding. Exam - Constitutional Vitals: Period Temp Pulse Resp BP Sys/Aguirre Pulse Ox Last 24 Hr 96.7 F-97.8 F 63-97 18-20 115-131/61-68 95-97 Exam: Constitutional System: No distress. No tremulousness. Head: Normocephalic, atraumatic. Ears, Nose and Throat System: No evidence of Otitis or Mastoiditis. No epistaxis or discharge Eyes System: Pupils equal, round, and reactive. Extraocular muscles intact. Neck: Supple, without adenopathy, No jugular venous distention. No thyromegaly , neck mass, or prior surgery apparent. Respiratory System: Chest clear to auscultation. Cardiovascular System: Heart with regular rate and rhythm. No murmur. GI System: Abdomen soft, nontender. Normo active bowel sounds present. Musculoskeletal System: limbs with no pedal edema. Full distal pulses. Neurological System: No discernable sensory deficit. Incomplete expressive aphasia due to previous stroke Psychiatric System: Conversation is rational Results - Labs CBC & BMP: 06/08/17 04:15 06/08/17 04:15 Lab Results: I have reviewed the past 24 hour labs
--- NOTE | 2017-06-10 12:44 | Urology Progress Note ---
Assessment and Plan (1) Prostate cancer metastatic to bone Status: Acute Assessment and plan: We will evaluate this but this is looking like prostate cancer. We will hold the Barney in preparation for a transrectal ultrasound and biopsy probably on 06/13/17. We will check a bladder scan and we will check a bone scan. Current Visit: Yes Urology - PN: Subj Interval history: Discussed transrectal ultrasound with biopsy with Mr. Carranza. Procedure was explained at length and in detail. Risks, complications, outcomes, sequelae, prognosis discussed. He is on Motrin 3 times daily which I was unaware of we will stop it now. We will make preparations for this. We will given gentamicin IV 80 mg as a preop along with 50 mg of Demerol IM and Phenergan 25 mg IM. He understands and agrees to proceed. Exam - Constitutional Vitals: Period Temp Pulse Resp BP Sys/Aguirre Pulse Ox Last 24 Hr 96.7 F-97.8 F 63-72 16-20 120-131/61-68 95-97 Results - Labs CBC & BMP: 06/08/17 04:15 06/08/17 04:15
[2017-06-10] MEDS: cefTRIAXone 1,000 MG in SODIUM CHLORIDE 0.9% 100 ML IV SCH (18:15)
[2017-06-10] MEDS: traZODone 50 MG TABLET PO SCH (21:00)
[2017-06-11] MEDS: LEVOTHYROXINE 125 MCG TABLET PO SCH (06:38)
[2017-06-11] MEDS: POLYETHYLENE GLYCOL POWDER 17 GM PACK PO SCH (08:58)
[2017-06-11] MEDS: BICALUTAMIDE 50 MG TABLET PO SCH (09:00)
[2017-06-11] MEDS: LACOSAMIDE 50 MG TABLET PO SCH ×2 (09:00→20:06)
[2017-06-11] MEDS: PANTOPRAZOLE 40 MG TABLET PO SCH (09:00)
[2017-06-11] MEDS: PRAVASTATIN 20 MG TABLET PO SCH (09:01)
[2017-06-11] MEDS: DILTIAZEM CD 120 MG CAPSULE PO SCH (09:06)
[2017-06-11] MEDS: DOCUSATE SODIUM 100 MG CAPSULE PO SCH ×2 (09:07→20:06)
[2017-06-11] MEDS: PHENYTOIN ER 100 MG CAPSULE PO SCH ×2 (09:08→20:06)
--- NOTE | 2017-06-11 12:41 | Hospitalist Progress Note ---
Assessment and Plan (1) Prostate cancer metastatic to bone Status: Acute Assessment and plan: The patient has evidence of prostate cancer on account of the PSA of 538. Dr. Maldonado recommends biopsy to confirm the diagnosis. Dr. Maldonado anticipates the biopsy will be on Tuesday. The patient's pain is improving. Anticoagulation was discontinued. The patient's urine culture has returned with E. coli sensitive to Rocephin and we continue Rocephin for now. 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 Carranza is a little stronger each day. The patient is ambulatory in his room and seems ready for prostate biopsy on Tuesday. I coordinated care with Dr. Maldonado. Exam - Constitutional Vitals: Period Temp Pulse Resp BP Sys/Aguirre Pulse Ox Last 24 Hr 96.4 F-97.5 F 65-78 16-20 114-154/58-80 93-99 Exam: Constitutional System: No distress. No tremulousness. Head: Normocephalic, atraumatic. Ears, Nose and Throat System: No evidence of Otitis or Mastoiditis. No epistaxis or discharge Eyes System: Pupils equal, round, and reactive. Extraocular muscles intact. Neck: Supple, without adenopathy, No jugular venous distention. No thyromegaly , neck mass, or prior surgery apparent. Respiratory System: Chest clear to auscultation. Cardiovascular System: Heart with regular rate and rhythm. No murmur. GI System: Abdomen soft, nontender. Normo active bowel sounds present. Musculoskeletal System: limbs with no pedal edema. Full distal pulses. Neurological System: No discernable sensory deficit. Incomplete expressive aphasia due to previous stroke Psychiatric System: Conversation is rational Results - Labs CBC & BMP: 06/08/17 04:15 06/08/17 04:15 Lab Results: I have reviewed the past 24 hour labs Specialty Discharge - Follow Up or Referrals Follow up with: Adam Maldonado MD [Physician] - 1 Week
[2017-06-11] MEDS: cefTRIAXone 1,000 MG in SODIUM CHLORIDE 0.9% 100 ML IV SCH (18:28)
[2017-06-11] MEDS: traZODone 50 MG TABLET PO SCH (20:06)
[2017-06-12] MEDS: LEVOTHYROXINE 125 MCG TABLET PO SCH (06:19)
[2017-06-12 07:06] LABS: Calcium 9.5 MG/DL (8.5-10.1); Magnesium 2.3 MG/DL (1.8-2.4); Potassium 5.1 MMOL/L (3.5-5.1)
--- NOTE | 2017-06-12 08:21 | Hospitalist Progress Note ---
Assessment and Plan (1) Prostate cancer metastatic to bone Status: Acute Assessment and plan: The patient has evidence of prostate cancer on account of the PSA of 538. Dr. Maldonado recommends biopsy to confirm the diagnosis. Dr. Maldonado anticipates the biopsy will be on Tuesday. The patient's pain is improved. Anticoagulation was discontinued. The patient's urine culture has returned with E. coli sensitive to Rocephin and we continue Rocephin for now. Current Visit: Yes (2) Cerebral arteriosclerosis with history of previous stroke Status: Chronic Current Visit: No Hospitalist: Subjective Interval history: This is an 81-year-old man who appears to have metastatic prostate carcinoma. PSA is elevated and he has bony metastases seen on CAT scan of the pelvis. The patient has previous left brain stroke with expressive aphasia and right hemiparesis which is reasonably well compensated. The patient has been seen by Dr. Maldonado and we anticipate cystoscopy with biopsies tomorrow on Tuesday morning. The patient was on anticoagulation which we had to hold for several days prior to the biopsy. Exam - Constitutional Vitals: Period Temp Pulse Resp BP Sys/Aguirre Pulse Ox Last 24 Hr 97.4 F-98.7 F 71-82 18-20 126-133/63-73 95-98 Exam: Constitutional System: No distress. No tremulousness. Head: Normocephalic, atraumatic. Ears, Nose and Throat System: No evidence of Otitis or Mastoiditis. No epistaxis or discharge Eyes System: Pupils equal, round, and reactive. Extraocular muscles intact. Neck: Supple, without adenopathy, No jugular venous distention. No thyromegaly , neck mass, or prior surgery apparent. Respiratory System: Chest clear to auscultation. Cardiovascular System: Heart with regular rate and rhythm. No murmur. GI System: Abdomen soft, nontender. Normo active bowel sounds present. Musculoskeletal System: limbs with no pedal edema. Full distal pulses. Neurological System: No discernable sensory deficit. Incomplete expressive aphasia due to previous stroke Psychiatric System: Conversation is rational Results - Labs CBC & BMP: 06/08/17 04:15 06/12/17 06:16 Lab Results: I have reviewed the past 24 hour labs Specialty Discharge - Follow Up or Referrals Follow up with: Adam Maldonado MD [Physician] - 1 Week
[2017-06-12] MEDS: BICALUTAMIDE 50 MG TABLET PO SCH (10:15)
[2017-06-12] MEDS: DILTIAZEM CD 120 MG CAPSULE PO SCH (10:15)
[2017-06-12] MEDS: PRAVASTATIN 20 MG TABLET PO SCH (10:16)
[2017-06-12] MEDS: PHENYTOIN ER 100 MG CAPSULE PO SCH ×2 (10:16→21:50)
[2017-06-12] MEDS: LACOSAMIDE 50 MG TABLET PO SCH ×2 (10:16→21:50)
[2017-06-12] MEDS: DOCUSATE SODIUM 100 MG CAPSULE PO SCH ×2 (10:16→21:51)
[2017-06-12] MEDS: POLYETHYLENE GLYCOL POWDER 17 GM PACK PO SCH (10:17)
[2017-06-12] MEDS: PANTOPRAZOLE 40 MG TABLET PO SCH (10:17)
[2017-06-12] MEDS: cefTRIAXone 1,000 MG in SODIUM CHLORIDE 0.9% 100 ML IV SCH (18:01)
[2017-06-12] MEDS: traZODone 50 MG TABLET PO SCH (21:52)
[2017-06-13] MEDS ORDERED: SODIUM PHOSPHATE ENEMA 133 ML BOTTLE RECTAL ONE ×3 (07:30→08:48)
[2017-06-13] MEDS ORDERED: PROMETHAZINE 25 MG/1 ML VIAL IM ONE (08:00)
[2017-06-13] MEDS ORDERED: MEPERIDINE 50 MG/1 ML VIAL IV ONE (08:00)
[2017-06-13] MEDS ORDERED: GENTAMICIN INJ 80 MG in PREMIX 1 EACH IV ONE (08:00)
--- NOTE | 2017-06-13 09:25 | Operative Note ---
Date of procedure: 06/13/17 Pre-op diagnosis: BPH with elevated PSA Post-op diagnosis: same Procedure: 81-year-old gentleman with probable carcinoma prostate. He has elevated PSA and abnormal bone scan. He is brought in for transrectal ultrasound with biopsy. The procedure was explained at length and in detail. Risks, complications, outcomes, sequelae, prognosis and alternative therapy was thoroughly discussed patient understood this and agreed to proceed. Patient brought to the cystoscopy suite. He is given a LMA anesthetic and placed in the left lateral position. The ultrasound probe was well lubricated and inserted in the right rectum atraumatically. The prostate was serially examined. The anatomy is distorted due to probable cancer. Biopsy needle was then passed and and 2 biopsies were obtained on the right and the left. Perineal pressure was held for 5 minutes. Patient was then awakened and tolerated this procedure well was sent to recovery room in stable condition. All sponge, needle and instrument counts correct 2 per Anesthesia: NATASHA Surgeon / Physician: Adam Maldonado Estimated blood loss: none Specimens: other (Needle biopsy sent to [facility]) Condition: stable Disposition: PACU Results - Labs CBC & BMP: 06/08/17 04:15 06/12/17 06:16 Discharge Plan - Discharge Medications No Action traZODone [Desyrel] 50 mg PO BEDTIME Levothyroxine Tab [Synthroid Tab] 125 mcg PO DAILY@0700 Lacosamide [Vimpat] 100 mg PO BID Rivaroxaban [Xarelto] 10 mg PO QAM Phenytoin Sodium Extended [Dilantin] 200 mg PO BID dilTIAZem HCl [Cartia XT] 120 mg PO QAM Pravastatin Sodium 10 mg PO QAM Ciprofloxacin Tab [Cipro Tab] 500 mg PO BID Polyethylene Glycol Powder [Miralax] 1 packet PO DAILY Ibuprofen [Ibuprofen] 800 mg PO TID - Follow Up or Referral Follow Up: Adam Maldonado MD [Physician] - 1 Week - Forms/Instructions Instructions: Prostate Gland Needle Biopsy (DC)
--- NOTE | 2017-06-13 09:29 | Anesthesia Post-Op ---
Anesthesia Post OP - Post Ansesthetic Evaluation Patient seen in post op: Yes Resp: within normal limits CV: within normal limits Mental: within normal limits Temp: within normal limits [id number]: within normal limits Nausea and Vomiting: within normal limits Pain: within normal limits
[2017-06-13] MEDS ORDERED: SEVOFLURANE 1 UNIT/15 MINUTE INH ONE (09:30)
[2017-06-13] MEDS ORDERED: PROPOFOL 200 MG/20 ML VIAL IV ONE (09:30)
[2017-06-13] MEDS ORDERED: fentaNYL 100 MCG/2 ML VIAL ONE (09:31)
[2017-06-13] MEDS: POLYETHYLENE GLYCOL POWDER 17 GM PACK PO SCH (11:25)
[2017-06-13] MEDS: LEVOTHYROXINE 125 MCG TABLET PO SCH (11:25)
[2017-06-13] MEDS: DOCUSATE SODIUM 100 MG CAPSULE PO SCH ×2 (11:27→20:28)
[2017-06-13] MEDS: LACOSAMIDE 50 MG TABLET PO SCH ×2 (11:31→20:28)
[2017-06-13] MEDS: PHENYTOIN ER 100 MG CAPSULE PO SCH ×2 (11:31→20:28)
[2017-06-13] MEDS: PRAVASTATIN 20 MG TABLET PO SCH (11:31)
[2017-06-13] MEDS: PANTOPRAZOLE 40 MG TABLET PO SCH (11:32)
[2017-06-13] MEDS: DILTIAZEM CD 120 MG CAPSULE PO SCH (11:32)
[2017-06-13] MEDS: BICALUTAMIDE 50 MG TABLET PO SCH (11:32)
--- NOTE | 2017-06-13 13:39 | Discharge Summary ---
Hospital Course - Hospital Course Hospital Course: 81 year old black male with PMHx of HTN, Seizures, CVA, GERD, DM-2 presented to [facility] ED for further evaluation of abdominal pain and flank pain. He had an elevated PSA level of 538.6. Urology Dr. Maldonado was consulted and further workup was initiated. CT scan of the abdomen and pelvis was abnormal, and showed multiple sclerotic lesions in the sacrum and pelvic bones. Metastatic carcinoma of the prostate was suspected. A bone scan was ordered and also showed diffuse osseous metastatic disease. Dr. Maldonado scheduled for had prostate biopsy which was done and he had an unremarkable course. Report is still pending and Dr. Maldonado has okayed his discharge to go home and follow-up in the clinic in about a week to discuss biopsy report and further plan. Apparently patient has seen Dr. Maldonado in the past and has a TURP back in 2010 and then was lost to follow-up due to his noncompliance with appointments. He reports that his pain is under control and is feeling okay to go home. - Time spent with patient Time with patient DS: Less than 30 minutes Diagnosis - Discharge Diagnosis (1) Metastatic bone cancer Status: Chronic (2) Abdominal pain Status: Resolved Specialty Discharge - Follow Up or Referrals Follow up with: Adam Maldonado MD [Physician] - 1 Week Discharge Plan - Discharge Data Condition at Discharge: Stable Discharge Diet: advance to your usual diet Activity: resume usual activities as tolerated Hygiene: no restrictions, may shower Weight Bearing at Discharge: full weight bearing - Discharge Medications New Bicalutamide [Casodex] 50 mg PO DAILY #30 tablet Docusate Sodium Cap [Colace Cap] 100 mg PO BID #60 capsule HYDROcodone/ACETAMIN 5-325 [[place] 5-325] 1 tablet PO Q4H PRN #30 tablet PRN Reason: Pain Mild (1-3) Continue traZODone [Desyrel] 50 mg PO BEDTIME Levothyroxine Tab [Synthroid Tab] 125 mcg PO DAILY@0700 Lacosamide [Vimpat] 100 mg PO BID Rivaroxaban [Xarelto] 10 mg PO QAM Phenytoin Sodium Extended [Dilantin] 200 mg PO BID dilTIAZem HCl [Cartia XT] 120 mg PO QAM Pravastatin Sodium 10 mg PO QAM Polyethylene Glycol Powder [Miralax] 1 packet PO DAILY Ibuprofen 800 mg PO TID Discontinued Ciprofloxacin Tab [Cipro Tab] 500 mg PO BID - Follow Up or Referral Follow Up: Adam Maldonado MD [Physician] - 1 Week - Forms/Instructions Instructions: Prostate Gland Needle Biopsy (DC) Exam - Constitutional Vitals: Period Temp Pulse Resp BP Sys/Aguirre Pulse Ox Last 24 Hr 96.2 F-98.0 F 59-79 16-20 124-160/62-73 95-100 Exam: General: No Acute Distress HEENT: Normocephalic, atraumatic, Extra ocular movements intact Neck: Supple, No JVD Chest: Clear to auscultation B/L CV: S1 + S2 audible without murmur, gallop or rub Abd: soft, NT, Non-distended, BS + Ext: No edema Skin: No purpura, bruising or rash Rheumatologic: No Joint deformities Neurologic: Strengtg 5/5 all extremities, no gross sensory deficits DS: Provider Date of admission: 06/06/17 14:02 Primary care physician: . No PCP Attending physician on admission: Anoop Ann MD Consults: 06/06/17 15:45 Consult to Dietitian [CONS] Routine Reason for Dietitian: Diet Instruction 06/06/17 18:14 Consult to Physician [CONS] Routine Comment: male uti, ltos Consulting Provider: Adam Maldonado Consulting Provider Notified: Yes When should Consulting Provider be notified: Now Consult to Specialist Group: Urology When should Consulting Provider be notified: Now Person Notified: SONYA Date Notified: 06/07/17 Time Notified: 08:47 Discharging clinician: Ani Webb MD
--- NOTE | 2017-06-13 17:50 | Hospitalist Progress Note ---
Assessment and Plan (1) Metastatic bone cancer Status: Chronic Current Visit: Yes (2) Abdominal pain Status: Resolved Current Visit: Yes Hospitalist: Subjective Interval history: The patient had prostate biopsy today and subsequently was scheduled to be discharged home. Initially he he had normal mental status after biopsy and discharge orders were written. Subsequently he was found to be somewhat confused and mildly agitated likely due to effects of anesthesia, and discharge was held to continue to monitor him. Exam - Constitutional Vitals: Period Temp Pulse Resp BP Sys/Aguirre Pulse Ox Last 24 Hr 96.2 F-98.0 F 59-79 16-20 124-160/62-73 95-100 Exam: General: [No Acute Distress] HEENT: [Normocephalic, atraumatic, Extra ocular movements intact] Neck: [Supple, No JVD] Chest: [Clear to auscultation B/L] CV: [S1 + S2 audible without murmur, gallop or rub] Abd: [soft, NT, Non-distended, BS +] Ext: [No edema] Skin: [No purpura, bruising or rash] Rheumatologic: [No Joint deformities] Neurologic: [Mild expressive aphasia] Results - Labs CBC & BMP: 06/08/17 04:15 06/12/17 06:16 - Impressions (1) Suspected prostate cancer metastatic to bone Status: Acute Assessment and plan: The patient has evidence of prostate cancer on account of the PSA of 538. Dr. Maldonado performed biopsy biopsy to confirm the diagnosis. The patient's urine culture has returned with E. coli sensitive to Rocephin and we continue Rocephin for now. Current Visit: Yes (2) Cerebral arteriosclerosis with history of previous stroke Status: Chronic Current Visit: No (3) Urinary tract infection present on admission, E. coli He completed a course of IV Rocephin (4) Acute confusion due to metabolic encephalopathy most likely from effects of anesthesia Continue to monitor Specialty Discharge - Follow Up or Referrals Follow up with: Adam Maldonado MD [Physician] - 06/21/17 2:45 pm
[2017-06-13] MEDS: cefTRIAXone 1,000 MG in SODIUM CHLORIDE 0.9% 100 ML IV SCH (18:40)
[2017-06-13] MEDS: traZODone 50 MG TABLET PO SCH (20:28)
[2017-06-14] MEDS: LEVOTHYROXINE 125 MCG TABLET PO SCH (06:36)
[2017-06-14] MEDS: PRAVASTATIN 20 MG TABLET PO SCH (08:33)
[2017-06-14] MEDS: PHENYTOIN ER 100 MG CAPSULE PO SCH (08:33)
[2017-06-14] MEDS: DILTIAZEM CD 120 MG CAPSULE PO SCH (08:33)
[2017-06-14] MEDS: BICALUTAMIDE 50 MG TABLET PO SCH (08:33)
[2017-06-14] MEDS: LACOSAMIDE 50 MG TABLET PO SCH (08:33)
[2017-06-14] MEDS: PANTOPRAZOLE 40 MG TABLET PO SCH (08:34)
[2017-06-14] MEDS: POLYETHYLENE GLYCOL POWDER 17 GM PACK PO SCH (08:34)
[2017-06-14] MEDS: DOCUSATE SODIUM 100 MG CAPSULE PO SCH (08:34)
[2017-06-14 12:32] VITALS: BP 134/67
--- NOTE | 2017-06-14 14:45 | Discharge Summary ---
Hospital Course - Hospital Course Hospital Course: 81 year old black male with PMHx of HTN, Seizures, CVA, GERD, DM-2 presented to [facility] ED for further evaluation of abdominal pain and flank pain. He had an elevated PSA level of 538.6. Urology Dr. Maldonado was consulted and further workup was initiated. CT scan of the abdomen and pelvis was abnormal, and showed multiple sclerotic lesions in the sacrum and pelvic bones. Metastatic carcinoma of the prostate was suspected. A bone scan was ordered and also showed diffuse osseous metastatic disease. Dr. Maldonado scheduled for had prostate biopsy which was done and he had an unremarkable course. Report is still pending and Dr. Maldonado has okayed his discharge to go home and follow-up in the clinic in about a week to discuss biopsy report and further plan. Apparently patient has seen Dr. Maldonado in the past and has a TURP back in 2010 and then was lost to follow-up due to his noncompliance with appointments. Patient also had acute tract infection that was present on admission and he completed a course of IV Rocephin and that has not resolved. Patient developed brief post procedure acute delirium yesterday due to effects of anesthesia. His discharge was held and he was monitored. He has improved significantly he is back to his baseline mental status and his acute delirium has resolved completely and he is stable condition of discharge home and he follow-up with urology next week to discuss the results of his biopsy findings. - Time spent with patient Time with patient DS: Less than 30 minutes Diagnosis - Discharge Diagnosis (1) Metastatic bone cancer Status: Chronic (2) Abdominal pain Status: Resolved Specialty Discharge - Follow Up or Referrals Follow up with: Adam Maldonado MD [Physician] - 06/21/17 2:45 pm Discharge Plan - Discharge Data Condition at Discharge: Stable Activity: resume usual activities as tolerated Hygiene: no restrictions Driving: not until seen by doctor - Discharge Medications New Bicalutamide [Casodex] 50 mg PO DAILY #30 tablet Docusate Sodium Cap [Colace Cap] 100 mg PO BID #60 capsule HYDROcodone/ACETAMIN 5-325 [[place] 5-325] 1 tablet PO Q4H PRN #30 tablet PRN Reason: Pain Mild (1-3) Continue traZODone [Desyrel] 50 mg PO BEDTIME Levothyroxine Tab [Synthroid Tab] 125 mcg PO DAILY@0700 Lacosamide [Vimpat] 100 mg PO BID Rivaroxaban [Xarelto] 10 mg PO QAM Phenytoin Sodium Extended [Dilantin] 200 mg PO BID dilTIAZem HCl [Cartia XT] 120 mg PO QAM Pravastatin Sodium 10 mg PO QAM Polyethylene Glycol Powder [Miralax] 1 packet PO DAILY Ibuprofen 800 mg PO TID Discontinued Ciprofloxacin Tab [Cipro Tab] 500 mg PO BID - Follow Up or Referral Follow Up: Adam Maldonado MD [Physician] - 06/21/17 2:45 pm - Forms/Instructions Instructions: Prostate Gland Needle Biopsy (DC) Exam - Constitutional Vitals: Period Temp Pulse Resp BP Sys/Aguirre Pulse Ox Last 24 Hr 96.5 F-98.2 F 65-86 18-20 126-151/61-72 96-99 Exam: General: No Acute Distress HEENT: Normocephalic, atraumatic, Extra ocular movements intact Neck: Supple, No JVD Chest: Clear to auscultation B/L CV: S1 + S2 audible without murmur, gallop or rub Abd: soft, NT, Non-distended, BS + Ext: No edema Skin: No purpura, bruising or rash Rheumatologic: No Joint deformities Neurologic: Strengtg 5/5 all extremities, no gross sensory deficits DS: Provider Date of admission: 06/06/17 14:02 Primary care physician: . No PCP Attending physician on admission: Anoop Ann MD Consults: 06/06/17 15:45 Consult to Dietitian [CONS] Routine Reason for Dietitian: Diet Instruction 06/06/17 18:14 Consult to Physician [CONS] Routine Comment: male uti, ltos Consulting Provider: Adam Maldonado Consulting Provider Notified: Yes When should Consulting Provider be notified: Now Consult to Specialist Group: Urology When should Consulting Provider be notified: Now Person Notified: SONYA Date Notified: 06/07/17 Time Notified: 08:47 Discharging clinician: Ani Webb MD
== END 2017-06-14 15:58 | disposition home health service (06) | DRG 722 ==
LOC: N.ED 11:13 → N.EDINP 14:02 → SUATTDRO 14:02 → N.4E 15:15
PROVIDERS: ADMIT Internal Medicine; ATTEND Hospitalist

== ENCOUNTER 2018-04-03 20:21 | Inpatient (IN) ==
[2018-04-03] MEDS ORDERED: METOPROLOL TARTRATE 25 MG TABLET PO STA (20:38)
[2018-04-03] MEDS ORDERED: ASPIRIN 325 MG TABLET PO STA (20:38)
[2018-04-03] MEDS ORDERED: ONDANSETRON 4 MG/2 ML VIAL IV STA (20:38)
[2018-04-03] MEDS ORDERED: NITROGLYCERIN 2% OINT 1 INCH/GM PACK TOP STA (20:38)
[2018-04-03] MEDS ORDERED: MORPHINE 4 MG/1 ML VIAL IV STA (20:38)
[2018-04-03 20:50] LABS: Basophils # 0.1 10*3/uL (0.0-0.2); Basophils % 1.1 % (0.0-0.8); Eosinophils # 0.1 10*3/uL (0.0-0.87); Eosinophils % 2.3 % (0.00-10.9); Hematocrit 36.1 VOL% (42.0-52.0); Hemoglobin 11.8 GM/DL (14.0-18.0); Immature Granulocytes % 0.4 %; Immature Granulocytes Absolute 0.02 #; Lymphocytes # 1.6 10*3/uL (1.4-4.0); Lymphocytes % 27.8 % (21.2-54.2); Mean Corpuscular HGB Conc 32.7 GM/DL (32-36); Mean Corpuscular Hemoglobin 30 PG (27-34); Mean Corpuscular Volume 90.3 FL (87-102); Mean Platelet Volume 9.3 FL (9.6-12.0); Monocytes # 0.6 10*3/uL (0.11-0.8); Monocytes % 10.9 % (1.7-12.7); Neutrophils # 3.2 10*3/uL (1.4-7.4); Neutrophils % 57.5 % (38.7-73.9); Platelet Count 225 T/CUMM (130-400); Red Cell Distribution Width 13.5 % (9.3-17.3); White Blood Count 5.6 T/CUMM (4-12)
[2018-04-03 21:19] LABS: PT Patient Result 10.7 SECS
[2018-04-03 21:21] LABS: Alanine Aminotransferase 20 U/L (16-61); Albumin 3.5 G/DL (3.4-5.0); Alkaline Phosphatase 279 U/L (45-117); Aspartate Amino Transferase 25 U/L (0-37); Bilirubin,Total < 0.39 MG/DL (0.2-1.0); Blood Urea Nitrogen 22 MG/DL (7-18); Calcium 9.5 MG/DL (8.5-10.1); Glucose 166 MG/DL (74-106); Osmolality,Calculated 287.3 MOS/KG (273-304); Potassium 3.8 MMOL/L (3.5-5.1); Sodium 141 MMOL/L (136-145); Total Protein 7.6 G/DL (6.4-8.3)
[2018-04-03 22:50] LABS: Apearance,Urine Slightly Hazy (Clear); Bacteria,Urine Moderate /HPF (Few); Bilirubin,Urine Negative (Negative); Blood, Urine Small mg/dL (Negative); Glucose,Urine (UA) Negative (Negative); Ketones,Urine Negative (Negative); Mucus,Urine Occasional /LPF (Occasional); Nitrite,Urine Negative (Negative); Protein,Urine Negative; RBC,Urine <1 /HPF (0-4); Squamous Epithelial Cell,Urine Occasional /HPF (0-10); Urine Color Yellow (Yellow); Urine Specific Gravity 1.014 (1.001-1.035); Urine Urobilinogen < 2.0 EU/DL (0.2-1.0); WBC,Urine 14 /HPF (0-6)
[2018-04-04] MEDS ORDERED: BISACODYL 5 MG TABLET PO PRN (00:55)
[2018-04-04] MEDS ORDERED: ONDANSETRON 4 MG/2 ML VIAL IV PRN (00:55)
[2018-04-04] MEDS ORDERED: MORPHINE 4 MG/1 ML VIAL IV PRN (00:55)
[2018-04-04] MEDS: cefTRIAXone 1,000 MG in SYRINGE 1 EACH IV SCH (02:00)
[2018-04-04 05:51] LABS: Risk Ratio 1.78
[2018-04-04] MEDS: LEVOTHYROXINE 125 MCG TABLET PO SCH (06:01)
[2018-04-04] MEDS: ZIPRASIDONE 20 MG/1 ML VIAL IM PRN (06:18)
[2018-04-04] MEDS: NITROGLYCERIN 2% OINT 1 INCH/GM PACK TOP SCH ×3 (06:53→19:13)
[2018-04-04] MEDS: INSULIN REGULAR 100 UNIT/ML SUBCUT SCH ×4 (08:11→20:34)
[2018-04-04] MEDS ORDERED: traMADol 50 MG TABLET PO SCH (09:00)
[2018-04-04] MEDS: PHENYTOIN ER 100 MG CAPSULE PO SCH ×2 (09:08→20:33)
[2018-04-04] MEDS: ASPIRIN EC 325 MG TABLET PO SCH (09:08)
[2018-04-04] MEDS: DILTIAZEM CD 120 MG CAPSULE PO SCH (09:08)
[2018-04-04] MEDS: LACOSAMIDE 50 MG TABLET PO SCH ×2 (09:08→20:33)
[2018-04-04] MEDS: TAMSULOSIN 0.4 MG CAPSULE PO SCH (09:09)
[2018-04-04] MEDS: BICALUTAMIDE 50 MG TABLET PO SCH (09:11)
[2018-04-04] MEDS: RIVAROXABAN 10 MG TABLET PO SCH (09:12)
[2018-04-04] MEDS: POLYETHYLENE GLYCOL POWDER 17 GM PACK PO SCH (09:12)
[2018-04-04] MEDS: traZODone 50 MG TABLET PO SCH (20:33)
[2018-04-04] MEDS: PRAVASTATIN 20 MG TABLET PO SCH (20:33)
[2018-04-05] MEDS: ZIPRASIDONE 20 MG/1 ML VIAL IM PRN (00:25)
[2018-04-05] MEDS: cefTRIAXone 1,000 MG in SYRINGE 1 EACH IV SCH (00:33)
[2018-04-05] MEDS: NITROGLYCERIN 2% OINT 1 INCH/GM PACK TOP SCH ×4 (00:37→18:00)
[2018-04-05 04:38] LABS: Basophils # 0.1 10*3/uL (0.0-0.2); Basophils % 1.1 % (0.0-0.8); Eosinophils # 0.1 10*3/uL (0.0-0.87); Eosinophils % 2.3 % (0.00-10.9); Hematocrit 33.2 VOL% (42.0-52.0); Hemoglobin 10.8 GM/DL (14.0-18.0); Immature Granulocytes % 0.4 %; Immature Granulocytes Absolute 0.02 #; Lymphocytes # 1.2 10*3/uL (1.4-4.0); Lymphocytes % 25.8 % (21.2-54.2); Mean Corpuscular HGB Conc 32.5 GM/DL (32-36); Mean Corpuscular Hemoglobin 29 PG (27-34); Mean Corpuscular Volume 90.5 FL (87-102); Mean Platelet Volume 9.5 FL (9.6-12.0); Monocytes # 0.5 10*3/uL (0.11-0.8); Monocytes % 10.4 % (1.7-12.7); Neutrophils # 2.8 10*3/uL (1.4-7.4); Platelet Count 209 T/CUMM (130-400); Red Blood Count 3.67 MC/CUMM (3.8-5.5); Red Cell Distribution Width 13.7 % (9.3-17.3); White Blood Count 4.7 T/CUMM (4-12)
[2018-04-05 05:14] LABS: Calcium 9.4 MG/DL (8.5-10.1); Potassium 3.7 MMOL/L (3.5-5.1)
[2018-04-05] MEDS: LEVOTHYROXINE 125 MCG TABLET PO SCH (06:41)
[2018-04-05] MEDS: INSULIN REGULAR 100 UNIT/ML SUBCUT SCH ×4 (07:14→21:11)
[2018-04-05] MEDS: DILTIAZEM CD 120 MG CAPSULE PO SCH (10:06)
[2018-04-05] MEDS: ASPIRIN EC 325 MG TABLET PO SCH (10:06)
[2018-04-05] MEDS: BICALUTAMIDE 50 MG TABLET PO SCH (10:08)
[2018-04-05] MEDS: TAMSULOSIN 0.4 MG CAPSULE PO SCH (10:08)
[2018-04-05] MEDS: PHENYTOIN ER 100 MG CAPSULE PO SCH ×2 (10:08→21:11)
[2018-04-05] MEDS: LACOSAMIDE 50 MG TABLET PO SCH ×2 (10:09→21:12)
[2018-04-05] MEDS: POLYETHYLENE GLYCOL POWDER 17 GM PACK PO SCH (10:09)
[2018-04-05] MEDS: RIVAROXABAN 10 MG TABLET PO SCH (10:09)
[2018-04-05] MEDS: PRAVASTATIN 20 MG TABLET PO SCH (21:11)
[2018-04-05] MEDS: traZODone 50 MG TABLET PO SCH (21:12)
[2018-04-06] MEDS: cefTRIAXone 1,000 MG in SYRINGE 1 EACH IV SCH (01:00)
[2018-04-06] MEDS: NITROGLYCERIN 2% OINT 1 INCH/GM PACK TOP SCH ×5 (02:11→23:45)
[2018-04-06] MEDS: LEVOTHYROXINE 125 MCG TABLET PO SCH (05:36)
[2018-04-06] MEDS: INSULIN REGULAR 100 UNIT/ML SUBCUT SCH ×4 (07:30→21:02)
[2018-04-06] MEDS: DILTIAZEM CD 120 MG CAPSULE PO SCH (08:47)
[2018-04-06] MEDS: ASPIRIN EC 325 MG TABLET PO SCH (08:47)
[2018-04-06] MEDS: PHENYTOIN ER 100 MG CAPSULE PO SCH ×2 (08:47→21:01)
[2018-04-06] MEDS: BICALUTAMIDE 50 MG TABLET PO SCH (08:47)
[2018-04-06] MEDS: LACOSAMIDE 50 MG TABLET PO SCH ×2 (08:48→21:01)
[2018-04-06] MEDS: POLYETHYLENE GLYCOL POWDER 17 GM PACK PO SCH (08:48)
[2018-04-06] MEDS: RIVAROXABAN 10 MG TABLET PO SCH (08:48)
[2018-04-06] MEDS: TAMSULOSIN 0.4 MG CAPSULE PO SCH (08:48)
[2018-04-06] MEDS: PRAVASTATIN 20 MG TABLET PO SCH (21:01)
[2018-04-06] MEDS: traZODone 50 MG TABLET PO SCH (21:01)
[2018-04-07] MEDS: cefTRIAXone 1,000 MG in SYRINGE 1 EACH IV SCH (01:07)
[2018-04-07] MEDS: LEVOTHYROXINE 125 MCG TABLET PO SCH (05:42)
[2018-04-07] MEDS: NITROGLYCERIN 2% OINT 1 INCH/GM PACK TOP SCH (05:42)
[2018-04-07] MEDS: INSULIN REGULAR 100 UNIT/ML SUBCUT SCH (08:45)
[2018-04-07] MEDS: TAMSULOSIN 0.4 MG CAPSULE PO SCH (09:31)
[2018-04-07] MEDS: BICALUTAMIDE 50 MG TABLET PO SCH (09:31)
[2018-04-07] MEDS: DILTIAZEM CD 120 MG CAPSULE PO SCH (09:35)
[2018-04-07] MEDS: PHENYTOIN ER 100 MG CAPSULE PO SCH (09:35)
[2018-04-07 09:36] VITALS: BP 158/74
[2018-04-07] MEDS: ASPIRIN EC 325 MG TABLET PO SCH (09:36)
[2018-04-07] MEDS: LACOSAMIDE 50 MG TABLET PO SCH (09:36)
[2018-04-07] MEDS: RIVAROXABAN 10 MG TABLET PO SCH (09:36)
[2018-04-07] MEDS: POLYETHYLENE GLYCOL POWDER 17 GM PACK PO SCH (11:01)
== END 2018-04-07 11:32 | disposition home health service (06) | DRG 313 ==
LOC: EDUNIT# → EDBD → N.ED 20:21 → N.EDINP 20:21 → N.3E 04-04 00:22 → SUATTDRO 04-04 08:38
PROVIDERS: ADMIT Internal Medicine Infectious Disease; ATTEND Family Medicine

== ENCOUNTER 2018-07-19 09:55 | Inpatient (IN) ==
[2018-07-19 11:03] LABS: Basophils # 0.1 10*3/uL (0.0-0.2); Basophils % 1.3 % (0.0-0.8); Eosinophils # 0.1 10*3/uL (0.0-0.87); Eosinophils % 1.3 % (0.00-10.9); Hematocrit 24.6 VOL% (42.0-52.0); Hemoglobin 7.4 GM/DL (14.0-18.0); Immature Granulocytes % 1.1 %; Immature Granulocytes Absolute 0.08 #; Lymphocytes # 1.1 10*3/uL (1.4-4.0); Lymphocytes % 15.4 % (21.2-54.2); Mean Corpuscular HGB Conc 30.1 GM/DL (32-36); Mean Corpuscular Hemoglobin 26 PG (27-34); Mean Corpuscular Volume 85.1 FL (87-102); Mean Platelet Volume 9.5 FL (9.6-12.0); Monocytes # 0.8 10*3/uL (0.11-0.8); Monocytes % 11.6 % (1.7-12.7); Neutrophils % 69.3 % (38.7-73.9); Platelet Count 357 T/CUMM (130-400); Red Blood Count 2.89 MC/CUMM (3.8-5.5); Red Cell Distribution Width 13.4 % (9.3-17.3); White Blood Count 7.1 T/CUMM (4-12)
[2018-07-19 11:14] LABS: PT Patient Result 10.9 SECS; Partial Thromboplastin Time 26.4 SECS (0-40)
[2018-07-19 11:18] LABS: Ammonia 46 UMOL/L (11-32)
[2018-07-19 11:37] LABS: Alanine Aminotransferase 13 U/L (16-61); Albumin 3.9 G/DL (3.4-5.0); Alkaline Phosphatase 446 U/L (45-117); Aspartate Amino Transferase 49 U/L (0-37); Bilirubin,Total < 0.39 MG/DL (0.2-1.0); Blood Urea Nitrogen 10 MG/DL (7-18); Calcium 10.2 MG/DL (8.5-10.1); Glucose 136 MG/DL (74-106); Osmolality,Calculated 273.8 MOS/KG (273-304); Potassium 3.8 MMOL/L (3.5-5.1); Sodium 137 MMOL/L (136-145); Total Protein 7.6 G/DL (6.4-8.3)
[2018-07-19 12:09] LABS: % Iron Saturation 6.1 % (18-50); Ferritin 102.6 ng/ml (26-388)
[2018-07-19 12:13] LABS: Folate 7.2 NG/ML (5.4-24.0); Vitamin B12 219 PG/ML (211-911)
[2018-07-19 13:31] LABS: Basophils # 0.1 10*3/uL (0.0-0.2); Basophils % 1.1 % (0.0-0.8); Eosinophils # 0.1 10*3/uL (0.0-0.87); Eosinophils % 1.1 % (0.00-10.9); Hematocrit 24.1 VOL% (42.0-52.0); Hemoglobin 7.5 GM/DL (14.0-18.0); Immature Granulocytes % 0.4 %; Immature Granulocytes Absolute 0.03 #; Lymphocytes # 1.1 10*3/uL (1.4-4.0); Lymphocytes % 14.8 % (21.2-54.2); Mean Corpuscular HGB Conc 31.1 GM/DL (32-36); Mean Corpuscular Hemoglobin 27 PG (27-34); Mean Corpuscular Volume 85.8 FL (87-102); Mean Platelet Volume 10.1 FL (9.6-12.0); Monocytes # 0.8 10*3/uL (0.11-0.8); Monocytes % 11.3 % (1.7-12.7); Neutrophils # 5.1 10*3/uL (1.4-7.4); Neutrophils % 71.3 % (38.7-73.9); Platelet Count 372 T/CUMM (130-400); Red Blood Count 2.81 MC/CUMM (3.8-5.5); Red Cell Distribution Width 13.4 % (9.3-17.3); White Blood Count 7.1 T/CUMM (4-12)
[2018-07-19 13:38] LABS: Apearance,Urine CLEAR (Clear); Bilirubin,Urine Negative (Negative); Blood, Urine Negative (Negative); Glucose,Urine (UA) Negative (Negative); Ketones,Urine Negative (Negative); Mucus,Urine Occasional /LPF (Occasional); Nitrite,Urine Negative (Negative); Protein,Urine Negative; RBC,Urine <1 /HPF (0-4); Squamous Epithelial Cell,Urine Occasional /HPF (0-10); Urine Color Yellow (Yellow); Urine Specific Gravity 1.012 (1.001-1.035); Urine Urobilinogen < 2.0 EU/DL (0.2-1.0); WBC,Urine <1 /HPF (0-6)
[2018-07-19 13:44] LABS: Barbiturates Screen,Urine Negative (Negative); Benzodiazepines Screen,Urine Negative (Negative); Cannabinoid Screen,Urine Negative (Negative); Opiate Screen,Urine Negative (Negative); Phencyclidine Screen,Urine Negative (Negative)
[2018-07-19 14:46] LABS: Sedimentation Rate-Westergren 116 MM/HR (0-20)
[2018-07-19 16:59] LABS: Thyroid Stimulating Hormone 1.63 uIU/ml (0.358-3.74)
[2018-07-20 06:02] LABS: Basophils # 0.1 10*3/uL (0.0-0.2); Basophils % 0.8 % (0.0-0.8); Eosinophils # 0.1 10*3/uL (0.0-0.87); Eosinophils % 1.2 % (0.00-10.9); Hematocrit 22.8 VOL% (42.0-52.0); Hemoglobin 7.2 GM/DL (14.0-18.0); Immature Granulocytes % 0.3 %; Immature Granulocytes Absolute 0.02 #; Lymphocytes # 1.1 10*3/uL (1.4-4.0); Mean Corpuscular HGB Conc 31.6 GM/DL (32-36); Mean Corpuscular Hemoglobin 26 PG (27-34); Mean Corpuscular Volume 83.2 FL (87-102); Monocytes # 0.8 10*3/uL (0.11-0.8); Monocytes % 13.4 % (1.7-12.7); Neutrophils # 3.9 10*3/uL (1.4-7.4); Neutrophils % 66.3 % (38.7-73.9); Platelet Count 306 T/CUMM (130-400); Red Blood Count 2.74 MC/CUMM (3.8-5.5); Red Cell Distribution Width 13.6 % (9.3-17.3); White Blood Count 5.9 T/CUMM (4-12)
[2018-07-20 06:33] LABS: Albumin 2.8 G/DL (3.4-5.0); Bilirubin,Total 0.9 MG/DL (0.2-1.0); Calcium 8.9 MG/DL (8.5-10.1); Osmolality,Calculated 282.1 MOS/KG (273-304); Risk Ratio 2.17; Total Protein 6.4 G/DL (6.4-8.3); VLDL CHOLESTEROL 18.2 MG/DL
[2018-07-20 09:06] LABS: Hemoglobin A1 (Alkaline) 97.6 % (96.5-98.5); Hemoglobin A2 (Alkaline) 2.4 % (1.5-3.5)
[2018-07-21 08:08] LABS: Basophils % 0.7 % (0.0-0.8); Eosinophils # 0.1 10*3/uL (0.0-0.87); Eosinophils % 2.3 % (0.00-10.9); Hematocrit 27.4 VOL% (42.0-52.0); Hemoglobin 8.8 GM/DL (14.0-18.0); Immature Granulocytes % 0.3 %; Immature Granulocytes Absolute 0.02 #; Lymphocytes % 16.9 % (21.2-54.2); Mean Corpuscular HGB Conc 32.1 GM/DL (32-36); Mean Corpuscular Hemoglobin 26 PG (27-34); Mean Corpuscular Volume 82.3 FL (87-102); Mean Platelet Volume 9.5 FL (9.6-12.0); Monocytes # 0.7 10*3/uL (0.11-0.8); Monocytes % 11.5 % (1.7-12.7); Neutrophils # 4.1 10*3/uL (1.4-7.4); Neutrophils % 68.3 % (38.7-73.9); Platelet Count 304 T/CUMM (130-400); Red Blood Count 3.33 MC/CUMM (3.8-5.5)
[2018-07-21 08:48] LABS: Albumin 2.8 G/DL (3.4-5.0); Bilirubin,Total 0.4 MG/DL (0.2-1.0); Calcium 9.4 MG/DL (8.5-10.1); Osmolality,Calculated 277.4 MOS/KG (273-304); Potassium 3.7 MMOL/L (3.5-5.1); Total Protein 6.5 G/DL (6.4-8.3)
[2018-07-21 11:16] VITALS: BP 141/66
== END 2018-07-21 15:42 | disposition home health service (06) | DRG 442 ==
LOC: EDBD → EDUNIT# → N.ED 09:55 → N.EDINP 13:04 → N.TELEN 15:26
PROVIDERS: ADMIT Hospitalist; ATTEND Hospitalist